=== PATIENT | male | born 1990 | race Caucasian/White ===

== ENCOUNTER 2018-08-12 19:17 | Emergency (ER) | payer SELFPAY ==
[2018-08-12] MEDS ORDERED: Acetaminophen/HYDROcodone 325-5 MG Tab PO ONE (19:31)
--- NOTE | 2018-08-12 20:00 | EDM.PDOC ---
ED HPI GENERAL MEDICAL PROBLEM - General Chief Complaint: Skin Complaint Stated Complaint: ABSCESS UNDER ARM Time Seen by Provider: 08/12/18 19:24 Source of Information: Reports: Patient History Limitations: Reports: No Limitations - History of Present Illness INITIAL COMMENTS - FREE TEXT/NARRATIVE: HISTORY AND PHYSICAL: History of present illness: Patient is a 28-year-old male who presents to the emergency room with complaints of an abscess under his left and right axilla. 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 Started noticing small localized area of redness and swelling over the past week which has now developed into an abscess. He denies any fever, chills, chest pain, shortness of breath or cough. Denies any GI or symptoms. Review of systems: As per history of present illness and below otherwise all systems reviewed and negative. Past medical history: As per history of present illness and as reviewed below otherwise noncontributory. Surgical history: As per history of present illness and as reviewed below otherwise noncontributory. Social history: See social history for further information Family history: As per history of present illness and as reviewed below otherwise noncontributory. Physical exam: General: Well-developed and well-nourished 28-year-old male. Alert and oriented. Nontoxic appearing and in no acute distress. HEENT: Atraumatic, normocephalic, pupils equal and reactive bilaterally, negative for conjunctival pallor or scleral icterus, mucous membranes moist, TMs normal bilaterally, throat clear, neck supple, nontender, trachea midline. No drooling or trismus noted. No meningeal signs. No hot potato voice noted. Lungs: Clear to auscultation, breath sounds equal bilaterally, chest nontender. Heart: S1S2, regular rate and rhythm without overt murmur Abdomen: Soft, nondistended, nontender. Negative for masses or hepatosplenomegaly. Negative for costovertebral tenderness. Pelvis: Stable nontender. Genitourinary: Deferred. Rectal: Deferred. Skin: Abscess to the left axilla approximately 5 cm in diameter. Abscess of the right axilla approximately 2 cm in diameter. Otherwise skin is intact, warm, dry. No lesions or rashes noted. Extremities: Atraumatic, moves all extremities per self without difficulty or deficits. negative for cords or calf pain. Neurovascular unremarkable. Neuro: Awake, alert, oriented. Cranial nerves II through XII unremarkable. Cerebellum unremarkable. Motor and sensory unremarkable throughout. Exam nonfocal. Notes: Both of the abscess were cleansed with chlorhexidine and Betadine swabs were used prior to lidocaine injection. Moderate amount of purulent drainage from the right axilla which was able to be packed with 1/4 inch iodafoam. The abscess of the right axilla was unable to be packed but did get a small amount of thick exudate from this. Wound care was provided. We discussed the need for appropriate follow-up and close management of this. We'll place the patient on antibiotic. Supportive care measures were reviewed and discussed. He voices understanding and is agreeable to plan of care. Denies any further questions or concerns at this time. Diagnostics: Wound culture Therapeutics: Canaan, Lidocaine, I&D, wound care, packing Prescription: Bactrim DS [place] (#10) Impression: Abscess Plan: 1. Please keep the area clean and dry. Keep the packing in for the next 48 hours. Have the wound reassessed at that time. 2. Tylenol and/or ibuprofen as needed for pain management. 3. Please follow-up with your primary care provider on Wednesday. Return to the ED as needed and as discussed. Definitive disposition and diagnosis as appropriate pending reevaluation and review of above. Left Armpit Pain Score (Numeric/FACES): 9 - Related Data Allergies Allergy/AdvReac Type Severity Reaction Status Date / Time No Known Allergies Allergy Verified 08/12/18 19:28 Home Meds: Home Meds Acetaminophen/HYDROcodone [Canaan 325-5 MG] 1 dose PO Q4H PRN #10 tablet [Rx] Sulfamethoxazole/Trimethoprim [Bactrim Ds Tablet] 1 each PO BID 10 Days #20 tablet 08/12/18 [Rx] Past Medical History HEENT History: Reports: Impaired Vision Cardiovascular History: Reports: Heart Murmur Other Cardiovascular History: Hx Endocarditis Other Respiratory History: Hx of staph in lungs - Infectious Disease History Infectious Disease History: Reports: Chicken Pox, Hepatitis C, MRSA - Past Surgical History Respiratory Surgical History: Reports: Lung Biopsies Other Musculoskeletal Surgeries/Procedures:: 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 ED EXAM, SKIN/RASH Exam: See Below (See dictation) ED SKIN PROCEDURES - I&D Site: Bilateral axilla Skin Prep: Chlorhexidine (Hibiciens), Providone-Iodine (Betadine) Local Anesthesia: Lidocaine: 1% Plain Local Anesthetic Volume: 3cc Area Incised With: 11 Blade Drainage: Purulent, Moderate Amount Probed to Break Up Loculations: Yes Packed With: 1/4 in. Iodoform Sterile Dressinx4(s) Complications: No Progress/Comments: Tdap is UTD Course - Vital Signs Last Recorded V/S: Last Vital Signs Temp 98.1 F 08/12/18 19:29 Pulse 93 08/12/18 19:29 Resp 16 08/12/18 19:29 BP 125/81 08/12/18 19:29 Pulse Ox 98 08/12/18 19:29 - Orders/Labs/Meds Orders: Active Orders 24 hr Category Date Time Status CULTURE WOUND [RM] Stat Lab 08/12/18 19:25 Received Meds: Medications Discontinued Medications Generic Name Dose Route Start Last Admin Trade Name Annel PRN Reason Stop Dose Admin Hydrocodone Bitart/Acetaminophen 1 tab 08/12/18 19:31 08/12/18 19:42 Canaan 325-5 Mg PO 08/12/18 19:32 1 tab ONETIME ONE Administration Lidocaine HCl 5 ml 08/12/18 19:31 08/12/18 19:43 Xylocaine-Mpf 1% INJECT 08/12/18 19:32 5 ml ONETIME ONE Administration Departure - Departure Time of Disposition: 20:00 Disposition: Home, Self-Care 01 Clinical Impression: Abscess - Discharge Information Prescriptions: Acetaminophen/HYDROcodone [Canaan 325-5 MG] 1 dose PO Q4H PRN #10 tablet PRN Reason: Pain Sulfamethoxazole/Trimethoprim [Bactrim Ds Tablet] 1 each PO BID 10 Days #20 tablet Instructions: Skin Abscess, Ecso-yl-Sekr, Incision and Drainage, Care After Referrals: PCP,None [Primary Care Provider] - Forms: ED Department Discharge Additional Instructions: The following information is given to patients seen in the emergency department who are being discharged to home. This information is to outline your options for follow-up care. We provide all patients seen in our emergency department with a follow-up referral. The need for follow-up, as well as the timing and circumstances, are variable depending upon the specifics of your emergency department visit. If you don't have a primary care physician on staff, we will provide you with a referral. We always advise you to contact your personal physician following an emergency department visit to inform them of the circumstance of the visit and for follow-up with them and/or the need for any referrals to a consulting specialist. The emergency department will also refer you to a specialist when appropriate. This referral assures that you have the opportunity for follow-up care with a specialist. All of these measure are taken in an effort to provide you with optimal care, which includes your follow-up. Under all circumstances we always encourage you to contact your private physician who remains a resource for coordinating your care. When calling for follow-up care, please make the office aware that this follow-up is from your recent emergency room visit. If for any reason you are refused follow-up, please contact the [facility] Emergency Department at and asked to speak to the emergency department charge nurse. [facility] [address] [place] [address] [id number] [address] [address] 1. Please keep the area clean and dry. Keep the packing in for the next 48 hours. Have the wound reassessed at that time. 2. Tylenol and/or ibuprofen as needed for pain management. 3. Please follow-up with your primary care provider on [place]. Return to the ED as needed and as discussed. - My Orders Last 24 Hours: My Active Orders 08/12/18 19:25 CULTURE WOUND [RM] Stat - Assessment/Plan Last 24 Hours: My Active Orders 08/12/18 19:25 CULTURE WOUND [RM] Stat
== END 2018-08-12 20:05 | disposition home or self-care (01) ==
LOC: MW.ED 19:17
DX: L02.412 Cutaneous abscess of left axilla (principal); L02.411 Cutaneous abscess of right axilla; F17.210 Nicotine dependence, cigarettes, uncomplicated
CPT/HCPCS: 10061; 87070; 87077; 87186; 99283; A9270